=== PATIENT | female | born 1950 | race Caucasian/White ===

== ENCOUNTER 2018-01-14 13:16 | Emergency (ER) | payer OTHER, MEDICARE ==
[~2018-01-14] VITALS: Ht 152.4 cm; Wt 40.8 kg
--- NOTE | 2018-01-14 14:07 | ED DYSPNEA/ASTHMA COMPLAINT ---
History of Present Illness General Chief Complaint: General Adult Stated Complaint: PT WAS SIB DR FOR BRONCHITIS Source: patient, family Exam Limitations: no limitations Vital Signs & Intake/Output Vital Signs & Intake/Output Vital Signs Date Time Temp Pulse Resp B/P B/P Pulse O2 O2 Flow FiO2 Mean Ox Delivery Rate 01/14 1622 96 Room Air 01/14 1555 97 18 137/62 97 Room Air 01/14 1326 96.8 112 18 150/80 96 Room Air Allergies Coded Allergies: No Known Allergies (01/14/18) Reconcile Medications Albuterol Sulfate (Proair Hfa) 90 MCG HFA.AER.AD 2 PUF INH AD PRN RESP ( Reported) Ascorbate Calcium (Vitamin C) (Unknown Strength) TABLET (Unknown Dose) PO DAILY SUPPLEMENT (Reported) Aspirin (Ecotrin*) 81 MG TABLET.DR 1 TAB PO DAILY HEART/BLOOD (Reported) Calcium Carbonate/Vitamin D3 (Calcium 500 + D Tablet) (Unknown Strength) TABLET (Unknown Dose) PO DAILY SUPPLEMENT (Reported) Levofloxacin 500 MG TABLET 1 TAB PO DAILY ABX (Reported) Multiple Vitamin (Multivitamins) 1 EACH TABLET 1 TAB PO DAILY SUPPLEMENT ( Reported) Umeclidinium Brm/Vilanterol Tr (Anoro Ellipta 62.5-25 Mcg INH) 62.5 MCG-25 MCG/ ACTUATION BLST.W.DEV 1 PUFF INH QAM COPD/EMPHYSEMA (Reported) Triage Note: PT STATES SHE WENT TO THE WALK IN LAST WEDNESDAY AND WAS GIVEN LVOFLOXOCIN AND PREDNISONE. PT AMSO GIVEN PROMETHAZINE DM. PT CALLED DR. DOUGLAS AND WAS TOLD TO COME TO ED BECAUSE SHE DOES NOT FEEL ANY BETTER. Triage Nurses Notes Reviewed? yes HPI: Patient has a history of COPD but is not on home oxygen. Patient developed a nonproductive cough, shortness of breath and wheezing. Patient went to a walk in center and she was put on Levaquin, prednisone and cough medicine. Patient is not feeling any better. Patient states that she has dyspnea on exertion. There is no orthopnea. There is no chest pain or chest tightness. There are no fevers or chills. There is no anorexia. Patient called her [employer] and she was instructed to come to the emergency department for evaluation. Past History Travel History Traveled to [place] past 21 day No Medical History Any Pertinent Medical History? see below for history Respiratory: COPD, emphysema Surgical History Surgical History: non-contributory Psychosocial History What is your primary language Swedish Tobacco Use: Current Daily Use Daily Tobacco Use Amount/Type: =< 4 Cigarettes daily ETOH Use: denies use Illicit Drug Use: denies illicit drug use Family History Hx Contributory? No Review of Systems Review of Systems Constitutional: Reports: no symptoms. EENTM: Reports: no symptoms. Respiratory: Reports: see HPI, cough, short of breath, wheezing. Cardiovascular: Reports: no symptoms. GI: Reports: no symptoms. Genitourinary: Reports: no symptoms. Musculoskeletal: Reports: no symptoms. Skin: Reports: no symptoms. Neurological/Psychological: Reports: no symptoms. Hematologic/Endocrine: Reports: no symptoms. Immunologic/Allergic: Reports: no symptoms. All Other Systems: Reviewed and Negative Physical Exam Physical Exam General Appearance: well developed/nourished, alert, awake, anxious, mild distress Head: atraumatic, normal appearance Eyes: Bilateral: PERRL, EOMI. Ears, Nose, Throat: normal pharynx, normal ENT inspection, hearing grossly normal Neck: normal inspection, supple, full range of motion Respiratory: normal breath sounds, chest non-tender, no respiratory distress, lungs clear Cardiovascular: regular rate/rhythm, normal peripheral pulses Gastrointestinal: normal bowel sounds, soft, non-tender, no organomegaly Extremities: normal inspection, normal capillary refill, normal range of motion, no edema Neurologic/Psych: no motor/sensory deficits, awake, alert, oriented x 3, normal gait, normal mood/affect Skin: intact, normal color, warm/dry Lymphatic: no anterior cervical michelle Core Measures ACS in differential dx? No CVA/TIA Diagnosis No Sepsis Present: No Sepsis Focused Exam Completed? No Progress Differential Diagnosis: bronchitis, COPD, pneumonia Plan of Care: Orders Procedure Date/time Status Add-on Test (ER Only) 01/14 1433 Active D-DIMER 01/14 1425 Complete TROPONIN LEVEL 01/14 1407 Complete COMPREHENSIVE METABOLIC PANEL 01/14 1407 Complete CBC WITHOUT DIFFERENTIAL 01/14 1407 Complete EKG 01/14 1407 Active Laboratory Tests 01/14/18 1425: Anion Gap 13, Estimated GFR > 60, BUN/Creatinine Ratio 22.9, Glucose 110 H, Calcium 9.9, Total Bilirubin 0.7, AST 27, ALT 40, Alkaline Phosphatase 69, Troponin I < 0.01, Total Protein 7.3, Albumin 4.3, Globulin 3.0, Albumin/ Globulin Ratio 1.4, D-Dimer High Sensitivty < 200, CBC w Diff NO MAN DIFF REQ, RBC 4.56, MCV 92.7, MCH 31.6 H, MCHC 34.1, RDW 12.9, MPV 5.9 L, Gran % 55.3, Lymphocytes % 35.8, Monocytes % 6.2, Eosinophils % 2.0, Basophils % 0.7, Absolute Granulocytes 4.6, Absolute Lymphocytes 3.0, Absolute Monocytes 0.5, Absolute Eosinophils 0.2, Absolute Basophils 0.1 Diagnostic Imaging: Viewed by Me: CT Scan. Discussed w/RAD: CT Scan. CXR Impression: PATIENT: BOBBY REY PRESENT AGE: 67 PATIENT ACCOUNT NO: [id number] : 51 LOCATION: [facility] ORDERING PHYSICIAN: Houston Muhammad MD SERVICE DATE: 01/14/18 EXAM TYPE: RAD - XRY- PORTABLE CHEST XRAY EXAMINATION: CHEST 1 VIEW CLINICAL INFORMATION: Cough. Pneumonia. COMPARISON: 03/18/2017. TECHNIQUE: An AP view of the chest is provided. FINDINGS: The cardiac silhouette is not enlarged. The mediastinal and hilar contours are unremarkable. There are neither pleural effusions nor pneumothoraces. There are no consolidations. The lungs are hyperinflated. The osseous structures are unremarkable. IMPRESSION: No evidence for acute disease. Lung hyperinflation. DICTATED BY: Leon Maldonado MD DATE/TIME DICTATED:01/14/181501 CUST[employer]S COMPLIANCE MANAGER:ABBIE DATE/TIME TRANSCRIBED:01/14/181501 CONFIDENTIAL, DO NOT COPY WITHOUT APPROPRIATE AUTHORIZATION. <Electronically signed in Other Vendor System> SIGNED BY: Leon Maldonado MD 01/14/18 9144 Initial ED EKG: S TACH, NSSTT CHANGES Prior EKG: unchanged Comments: AMBULATORY SAT 98% Departure Departure Disposition: HOME OR SELF CARE Condition: Stable Clinical Impression Primary Impression: COPD exacerbation Referrals: Esequiel Zheng DO (PCP/Family) Additional Instructions: TAKE STEROIDS PRESCRIBED TAKE ANTIBIOTICS PRESCRIBED RETURN IF SYMPTOMS WORSEN OR FOR ANY CONCERNS Departure Forms: Customer Survey General Discharge Information Prescriptions: Current Visit Scripts Amoxicillin/Potassium Clav (Augmentin [id number] Tablet) 1 TAB PO BID #20 TAB Prednisone 1 TAB PO DAILY #18 TAB TAKE 3 TABS FOR 3 DAYS THEN TAKE 2 TABS FOR 3 DAYS THEN TAKE 1 TAB FOR 3 DAYS Critical Care Note Critical Care Note Critical Care Time: non-applicable
[2018-01-14 14:33] LABS: ABSOLUTE BASOPHIL COUNT 0.1 /CUMM (0.0-0.2); ABSOLUTE EOSINOPHIL COUNT 0.2 /CUMM (0.0-0.7); ABSOLUTE GRANULOCYTE CT 4.6 /CUMM (1.4-6.5); ABSOLUTE MONOCYTE COUNT 0.5 /CUMM (0.10-0.60); BASOPHIL % 0.7 % (0.0-2.0); GRANULOCYTE % 55.3 % (42.2-75.2); HEMATOCRIT 42.3 % (37-47); MEAN CORPUSCULAR HGB 31.6 PG (27.0-31.0); MEAN CORPUSCULAR HGB CONC 34.1 G/DL (33.0-37.0); MEAN CORPUSCULAR VOLUME 92.7 FL (81.0-99.0); MEAN PLATELET VOLUME 5.9 FL (7.4-10.4); PLATELET COUNT 525 /CUMM (130-400); RBC DISTRIBUTION WIDTH 12.9 % (11.5-14.5); RED BLOOD CELL CT 4.56 /CUMM (4.20-5.40); WHITE BLOOD CELL COUNT 8.3 /CUMM (4.8-10.8)
--- NOTE | 2018-01-14 15:09 | RADIOLOGY REPORT ---
EXAMINATION: CHEST 1 VIEW CLINICAL INFORMATION: Cough. Pneumonia. COMPARISON: 03/18/2017. TECHNIQUE: An AP view of the chest is provided. FINDINGS: The cardiac silhouette is not enlarged. The mediastinal and hilar contours are unremarkable. There are neither pleural effusions nor pneumothoraces. There are no consolidations. The lungs are hyperinflated. The osseous structures are unremarkable. IMPRESSION: No evidence for acute disease. Lung hyperinflation.
[2018-01-14] MEDS ORDERED: PROAIR HFA8.5 GM INH (15:48)
[2018-01-14] MEDS ORDERED: LEVOFLOXACIN500 M1 PO (15:48)
[2018-01-14] MEDS ORDERED: ANORO ELLIPTA1 EACH INH (15:48)
[2018-01-14] MEDS ORDERED: ASPIRIN EC81 M1 PO (15:49)
[2018-01-14] MEDS ORDERED: MULTIVITAMINS1 EAC9 PO (15:50)
[2018-01-14] MEDS ORDERED: VITAMIN C500 M6 PO (15:50)
[2018-01-14] MEDS ORDERED: CALCIUM 500 +1 EAC5 PO (15:50)
[2018-01-14 15:55] VITALS: BP 137/62
[2018-01-14] MEDS ORDERED: PREDNISONE10 M2 PO (17:11)
[2018-01-14] MEDS ORDERED: AUGMENTIN 875-1 EACH PO (17:11)
== END 2018-01-14 17:25 ==
LOC: ERH 13:16
PROVIDERS: Emergency Medicine
DX: J44.1 Chronic obstructive pulmonary disease with (acute) exacerbation (principal); F17.210 Nicotine dependence, cigarettes, uncomplicated
CPT/HCPCS: 71045; 93005; 93010; 96374; 96375; J0456; J0713; J2930; J7060